=== PATIENT | male | born 1945 | race Caucasian/White ===

== ENCOUNTER → 2023-06-10 14:36 | Outpatient (REF) | payer MEDICARE, BC, SELFPAY | LOC: RAD 14:36 | PROVIDERS: ATTENDING PHYSICIAN Radiology Diagnostic Radiology; FAMILY PHYSICIAN Internal Medicine | DX: Z01.818 Encounter for other preprocedural examination (principal) | CPT/HCPCS: 71046 ==

== ENCOUNTER → 2023-09-03 14:37 | Outpatient (REF) | payer MEDICARE, BC, SELFPAY | LOC: RAD 14:37 | PROVIDERS: ATTENDING PHYSICIAN Physician Assistant Medical | DX: M79.89 Other specified soft tissue disorders (principal); R22.41 Localized swelling, mass and lump, right lower limb | CPT/HCPCS: 93971 ==

== ENCOUNTER 2024-03-04 20:41 | Emergency (ER) | payer SELFPAY ==
[2024-03-04 20:43] VITALS: BP 131/58
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
[2024-03-04 22:16] VITALS: BP 108/71
== END 2024-03-04 22:19 | disposition home or self-care (01) ==
LOC: EMR 20:41
PROVIDERS: EMERGENCY PHYSICIAN Emergency Medicine
DX: S00.83XA Contusion of other part of head, initial encounter (principal); W01.198A Fall on same level from slipping, tripping and stumbling with subsequent striking against other object, initial encounter
CPT/HCPCS: 99282; 12011

== ENCOUNTER 2025-05-22 17:32 | Emergency (ER) | payer MEDICARE, BC, SELFPAY ==
[2025-05-22] VITALS (8 sets, daily range): BP systolic 86–115; BP diastolic 48–59; PULSE 68–75; BMI 28.9
[2025-05-22] MEDS: ZOFRAN ODT (ORALLY DISINTEGRATING) 4 MG PO (17:53)
[2025-05-22] MEDS: TYLENOL 1000 MG PO (17:53)
[2025-05-22 18:21] LABS: COVID-19 Antigen Negative (Negative)
--- NOTE | 2025-05-22 19:21 | ED.GENMED ---
History of Present Illness
General
Chief Complaint: Cold/Flu/URI Symptoms
Source: patient
Exam Limitations: none
Time Seen by Provider: 05/22/25 19:14
Nursing documentation reviewed up to this point in time: agreed with
History of Present Illness
History of Present Illness:
Patient is a 79-year-old male past medical history of aortic stenosis A-fib valve replacement/pacemaker/AICD with complaints of fevers. Patient has felt intermittently nauseous since Friday developed rigors last night at a restaurant and then
vomited. Today he has had chills and feels very weak. He has vomited intermittently today. Patient was recently given Tylenol and Zofran prior to my exam. He complains of very minimal cough no urinary frequency or urgency. No runny nose. He
denies shortness of breath. He denies any chest pain.
Past History
Past History
ED Past Medical History: Arrthythmia, CAD, HTN, Hypercholesterolemia, [place], Valvular disease (AVR) and Other
ED Past Surgical History: Appendectomy and Cardiac
Social History
Tobacco: Non-smoker
Alcohol: Occasional
Drug: None
Personal:
Living: with family
Employment: Employed
Family History
Family History: Other (Noncontributory)
Phy Exam
General Physical Exam
General Presentation: well appearing
General age: appears stated age
General Skin: warm and dry
General Habitus: elderly
General Mental: alert
General Hydration: appears well hydrated
Cardiovascular Exam
Cardiovascular Exam: regular rate/rhythm, no murmur and normal peripheral pulses
Pulmonary Exam
Pulmonary Exam: lungs clear and no respiratory distress
Gastrointestinal Exam
Gastrointestinal Exam: non tender and soft
Neurological Exam
Neurological Exam: alert, oriented x3, no motor deficits and no sensory deficits
Musculoskeletal Exam
Musculoskeletal Exam: full ROM
Skin Exam
Skin Exam: normal color and warm/dry
Psychiatric Exam
Psychiatric Exam: normal mood/affect
Course
Orders/Labs/Results
Orders:
Orders
05/22/25 17:49
Acetaminophen [Tylenol] 1,000 mg .ROUTE .STK-MED ONE
05/22/25 17:50
Ondansetron Orally Disint [Zofran Odt (Orally Disintegrating)] 4 mg .ROUTE .STK-MED ONE
05/22/25 17:52
Ondansetron Orally Disint [Zofran Odt (Orally Disintegrating)] 4 mg PO NOW STA
05/22/25 17:53
Acetaminophen [Tylenol] 1,000 mg PO NOW STA
05/22/25 17:58
COVID-19 Antigen Urgent
Source: Nasal Swab
Influenza A+B Rapid Molecular Urgent
DEAN Source: Nasal Swab
Specimen Description:
05/22/25 19:29
Cardiac Monitoring- Treatment ONCE
IV Insert/Care/Rem.- Treatment PRN
0.9% Sodium Chloride 1000 ml [Nss] 1,000 ml IV BOLUS
05/22/25 19:33
CR Chest - 2 Views Urgent
Comment:
Reason For Exam: fever /cough
05/22/25 19:46
Complete Blood Count/With Diff Urgent
Comprehensive Metabolic Panel Urgent
Lactic Acid Q4H
Comment: CANCEL 2nd LACTIC ACID IF 1st LACTIC ACID IS LESS THAN 2
Blood Culture Q30M
DEAN Source: Blood/Venous
Specimen Description:
05/22/25 20:29
Blood Culture Q30M
DEAN Source: Blood/Venous
Specimen Description:
05/22/25 21:14
Urinalysis Reflex To Culture Urgent
Date Specimen was Collected: 05/22/25
Time Specimen was Collected: 21:11
Urine Microscopic Reflex Cult Urgent
Urine Culture Urgent
DEAN Source: U
Specimen Description:
Date Specimen was Collected: 05/22/25
Time Specimen was Collected: 21:11
05/22/25 21:53
Orthostatic VS- Treatment ONCE
05/22/25 22:21
DDimer [D-Dimer] Urgent
Abnormal Lab Results
05/22/25 05/22/25 05/22/25
19:46 21:14 22:21
RBC 3.62 L 10^6/uL
(4.70-6.10)
Hgb 10.6 L g/dL
(13.0-18.0)
Hct 31.1 L %
(39.0-52.0)
RDW 14.6 H %
(11.5-14.5)
D-Dimer 1.01 H ug/mlFEU
(0.00-0.50)
BUN 31 H mg/dl
(9-20)
Creatinine 1.4 H mg/dL
(0.7-1.3)
Glucose 128 H mg/dl
(70-99)
Urine Ketones 1+ A
(Negative)
Urine Bacteria (Reflex) Moderate A
(Negative)
Urine Albumin (Reflex) 2+ A
(Neg - Trace)
05/22/25 19:46
05/22/25 19:46
Vital Signs
Initial and Last Documented VS:
Initial Vital Signs
Temp Pulse Resp BP Pulse Ox
101.0 F H 70 18 115/52 99
05/22/25 17:44 05/22/25 17:44 05/22/25 17:44 05/22/25 17:44 05/22/25 17:44
Last Documented Vital Signs
Temp Pulse Resp BP Pulse Ox
98.5 F 72 24 86/51 94
05/22/25 20:35 05/22/25 23:00 05/22/25 21:00 05/22/25 23:00 05/22/25 23:00
Second Time Worker consulted with Physician
Second Time Worker consulted with physician?: Yes
Name of Physician Consulted: Noh
MDM/Problems Addressed
Differential Diagnosis Includes:
Not limited to COVID, influenza, pneumonia, viral syndrome
MDM/Problems Addressed:
Patient is a 79-year-old male who presented with chills intermittent vomiting since yesterday. Patient presented with a temp of 101. He is however well-appearing his white count is normal his lungs are clear. He is mildly dehydrated was given
fluids here in the ER his urine is negative for infection COVID flu are negative. His chest x-ray is negative for pneumonia or pulmonary edema. Patient with intermittently low pulse ox laying down however no associated shortness of breath. Pulse
ox improves with sitting up. Case was discussed with ED physician we did order D-dimer minimally elevated however pulse ox has improved in the ER with sitting up patient continues to deny any shortness of breath. He is nontachycardic
nontachypneic here resting comfortably. He continues to look very well symptoms are likely viral syndrome. d/c with ED physician stable for discharge home .
Patient's blood pressure is normally in the 90s she is having ongoing stable for patient.
Chronic conditions affecting care:
PM
*Radiology
Radiology exam reviewed: radiology read reviewed
*Pulse Oximetry
SaO2: 93
Oxygen Mode of Delivery: Room air
Patient hypoxic: no (repeat pulse ox 94-95% )
Comment: repeat pulse ox 94-95%
*Critical Care Note
Total Time (30-74mins, 75-104mins- exclusive of procedures): Not Applicable
ED Attending Note
-
Portions of this chart may have been created with voice recognition software.� Occasional wrong word or��sound alike� substitutions may have occurred due to the inherent limitations of voice recognition software.
Discharge Plan
Departure
Patient Disposition: Home (Routine Discharge)
Date of Disposition: 05/22/25
Time of Disposition: 23:19
Patient with high blood pressure during this ER visit?: No
Covid-19: Not Applicable
Discharge Problem:
Fever
Instructions: Fever, Adult (DC)
Prescriptions:
No Action
levothyroxine 50 mcg Tablet
50 mcg PO DAILY
Prevagin
1 tab PO DAILY
metoprolol succinate 25 MG tablet extended release 24 hr
25 mg PO DAILY Qty: 90 3RF
aspirin 81 mg tablet,chewable
81 mg PO DAILY Qty: 1 0RF
Artificial Tears (PF) Dropperette
2 drp BOTH EYES HS
Referrals:
Luis Uribe MD [Family Provider, Internal Medicine]
Activity Restrictions/Additional Instructions:
It is likely that you have a viral syndrome. You were negative for COVID and flu. Your chest x-ray was negative for pneumonia and your urinalysis was negative for infection. You were mildly dehydrated here in the ER and were given fluids. Please
continue to increase fluid intake.
Have your kidney function rechecked in the next week by your family doctor.
Please see your family doctor in the next 2 to 3 days for reevaluation of your symptoms and return if any worsening of symptoms
Interventions
Interventions:
*Risk Screen - Suicide Last Done: 05/22/25 17:46
*General Assessment Last Done: 05/22/25 17:46
*Neglect/Abuse Screening Last Done: 05/22/25 17:46
*ED- Fall Risk Assessment Last Done: 05/22/25 20:40
*ED COVID-19 Vaccine History Last Done: 05/22/25 17:46
*ED Influenza Vaccine History Last Done: 05/22/25 17:46
ED- Pulmonary Assessment Last Done: 05/22/25 20:40
Discharge Date and Time
Print Language: NIGERIAN
[2025-05-22] MEDS: NSS 1000 IV (19:45)
[2025-05-22 19:55] LABS: Hematocrit 31.1 % (39.0-52.0); Hemoglobin 10.6 g/dL (13.0-18.0); Mean Corp Hgb Conc. 34.1 g/dL (33.0-37.0); Mean Corpuscular Volume 85.9 fL (80.0-94.0); Nucleated Red Blood Cells % 0 % (-); Platelet Count 166 10^3/uL (130-400); Red Cell Dist. Width 14.6 % (11.5-14.5)
[2025-05-22 20:21] LABS: ALT (SGPT) 27 U/L (0-50); AST (SGOT) 36 U/L (17-59); Albumin 4.0 g/dl (3.5-5.0); Alkaline Phosphatase 81 U/L (38-126); Blood Urea Nitrogen 31 mg/dl (9-20); Calcium 9.8 mg/dl (8.4-10.2); Carbon Dioxide 24 mmol/L (22-30); Chloride 105 mmol/L (98-107); Estimated Creatinine Clearance 44 ml/min; Glucose 128 mg/dl (70-99); Potassium 4.3 mmol/L (3.5-5.1); Sodium 135 mmol/L (135-145); Total Protein 7.9 g/dl (6.3-8.2); eGFR 51.45
--- NOTE | 2025-05-22 20:43 | EDRN ---
Pt says he had covid about 1.5 weeks ago. Pt with fevers for two days, reportedly 101 'point something' at home. Pt has been taking medication for fever. Pt unable to keep anything down. Pt tried to eat jello earlier and says he vomited it up.
Last vomited around 1500. No appetite. Pt with generalized weakness, fevers, chills, vomiting. No nausea currently. Pt denies cp, sob, abd pain, constipation, diarrhea, urinary symptoms, ill contacts.
[2025-05-22 21:22] LABS: Urine Character Slightly Cloudy (Clear)
[2025-05-22 21:32] LABS: Urine Red Blood Cell 0-2 /HPF (0-2); Urine Squamous Cell 0-2 /LPF (Few); Urine Urothelial Cell 0-2 /LPF (FEW)
[2025-05-22 23:01] LABS: D-Dimer 1.01 ug/mlFEU (0.00-0.50)
== END 2025-05-22 23:47 | disposition home or self-care (01) ==
LOC: EMR 17:32
PROVIDERS: Emergency Medicine; Nurse Practitioner; EMERGENCY PHYSICIAN Emergency Medicine; FAMILY PHYSICIAN Internal Medicine
DX: R50.9 Fever, unspecified (principal); E86.0 Dehydration; R05.9 Cough, unspecified; E78.00 Pure hypercholesterolemia, unspecified; I10 Essential (primary) hypertension; I25.10 Atherosclerotic heart disease of native coronary artery without angina pectoris; I35.0 Nonrheumatic aortic (valve) stenosis; I48.91 Unspecified atrial fibrillation; Z95.2 Presence of prosthetic heart valve; Z95.810 Presence of automatic (implantable) cardiac defibrillator; Z90.49 Acquired absence of other specified parts of digestive tract; Z11.52 Encounter for screening for COVID-19
CPT/HCPCS: 96360; 99284; 71046; 80053; 81003; 81015; 83605; 85025; 85379; 87040; 87086; 87502; 87811